=== PATIENT | male | born 2005 | race Caucasian/White ===

== ENCOUNTER 2023-06-19 14:27 | Emergency (ER) | payer OTHER, SELFPAY ==
[2023-06-19 14:47] VITALS: BP 111/60; PULSE 76; RESP 18; TEMP 36.4; O2SAT 99; BMI 24.7
[2023-06-19 15:34] LABS: PCR FLU A Negative PCR FLU A (Negative); PCR FLU B Negative PCR FLU B (Negative); PCR RSV Negative PCR RSV (Negative)
[2023-06-19 15:39] LABS: SARS PCR* Negative SARS-CoV-2 (Negative)
--- NOTE | 2023-06-19 16:22 | ED.GENADULT ---
HPI - General Adult General Chief complaint: Cough Stated complaint: dry cough, low grade fever, weakness in limbs Time Seen by Provider: 06/19/23 16:00 Related Data Previous Rx's Medication Instructions Recorded benzonatate 100 mg capsule 100 mg PO BID PRN cough #14 caps 06/19/23 Allergies Allergy/AdvReac Type Severity Reaction Status Date / Time No Known Drug Allergies Allergy Verified 06/19/23 14:51 PFSH PFSH Social History Smoking Status: Unknown if ever smoked Exam Const: Vital Signs, click to edit/add: Vital Signs - 24 hr 06/19/23 14:47 Temperature 97.5 F L Pulse Rate [Pulse Oximeter] 76 Respiratory Rate 18 Blood Pressure [Ri t Upper Arm] 111/60 Pulse Oximetry 99 Oxygen Delivery Me thod Room Air Course Vital Signs Vital signs: Initial Vital Signs Temperature 97.5 F L 06/19/23 14:47 Temperature Source Temporal Artery Scan 06/19/23 14:47 Pulse Rate 76 06/19/23 14:47 Respiratory Rate 18 06/19/23 14:47 Blood Pressure 111/60 06/19/23 14:47 Blood Pressure Mean 77 06/19/23 14:47 Blood Pressure Position Sitting 06/19/23 14:47 Pulse Oximetry 99 06/19/23 14:47 Oxygen Delivery Method Room Air 06/19/23 14:47 Vital Signs Temperature 97.5 F L 06/19/23 14:47 Pulse Rate 76 06/19/23 14:47 Respiratory Rate 18 06/19/23 14:47 Blood Pressure 111/60 06/19/23 14:47 Pulse Oximetry 99 06/19/23 14:47 Oxygen Delivery Method Room Air 06/19/23 14:47 Temperature 97.5 F L 06/19/23 14:47 Pulse Rate 76 06/19/23 14:47 Respiratory Rate 18 06/19/23 14:47 Blood Pressure 111/60 06/19/23 14:47 Pulse Oximetry 99 06/19/23 14:47 Oxygen Delivery Method Room Air 06/19/23 14:47 Medical Decision Making Lab Data Labs: Lab Results 06/19/23 Range/Units 14:50 SARS-CoV-2 (PCR) Negative SARS-CoV-2 (Negative) Influenza Type A (PCR) Negative PCR FLU A (Negative) Influenza Type B (PCR) Negative PCR FLU B (Negative) RSV (PCR) Negative PCR RSV (Negative) Discharge Plan Discharge Clinical Impression: Acute viral syndrome Patient Disposition: Home, Self-Care Condition: Stable Instructions: Viral Syndrome (ED) Additional Instructions: Symptoms are likely all from a viral syndrome. This will take a week or 2 to past and maybe longer. You can use the cough suppressant as needed. Prescriptions: New benzonatate 100 mg capsule 100 mg PO BID PRN (Reason: cough) Qty: 14 0RF Stand Alone Forms: [employer] Info Instructions
== END 2023-06-19 16:45 | disposition home or self-care (01) ==
LOC: ED 16:39
PROVIDERS: Emergency Provider Student in an Organized Health Care Education/Training Program
DX: B34.9 Viral infection, unspecified (principal)
CPT/HCPCS: 87631; 95992; 99282; 99283